=== PATIENT | female | born 1960 | race Caucasian/White ===

== ENCOUNTER 2024-04-25 12:24 | Emergency (ER) | payer OTHER ==
[~2024-04-25] VITALS: Ht 165.1 cm; Wt 64.2 kg
[~2024-04-25 12:24] MED LIST: TESSALON200 MG PO
[2024-04-25] MEDS: PREDNISONE 20 MG TAB PO ONE (14:44)
[2024-04-25] MEDS ORDERED: ATORVASTATIN CA20 MG PO (16:06)
[2024-04-25] MEDS ORDERED: HYDROCODON-ACE1 EAC9 (16:06)
[2024-04-25] MEDS ORDERED: DICLOFENAC POTA25 MG PO (16:06)
[2024-04-25] MEDS ORDERED: NEURONTIN400 MG PO (16:06)
[2024-04-25] MEDS ORDERED: LISINOPRIL10 MG PO (16:06)
[2024-04-25 16:58] VITALS: PULSE 59; RESP 16; TEMP 98.5; O2SAT 98
[2024-04-25] MEDS ORDERED: PREDNISONE20 MG PO (17:25)
[2024-04-25] MEDS ORDERED: LIDOCAINE1 EACH TOP (17:27)
[2024-04-25] MEDS ORDERED: PREDNISONE50 MG PO (17:31)
== END 2024-04-25 17:47 | disposition home or self-care (01) ==
LOC: FSED 12:29
DX: M54.16 Radiculopathy, lumbar region (principal); I10 Essential (primary) hypertension; E78.5 Hyperlipidemia, unspecified; M06.9 Rheumatoid arthritis, unspecified; M54.9 Dorsalgia, unspecified; G89.29 Other chronic pain; F17.210 Nicotine dependence, cigarettes, uncomplicated
CPT/HCPCS: 72131; 99284; J7512